=== PATIENT | male | born 1935 | race Caucasian/White ===

== ENCOUNTER 2019-12-27 18:53 | Inpatient (IN) ==
[2019-12-27 20:15] LABS: Basophils % 0.3 %; Eosinophils # 0.1 K/mcL (0.0-0.6); Eosinophils % 1.1 %; Hematocrit 38.1 % (37.5-50.1); Hemoglobin 12.5 g/dL (12.9-16.9); Immature Granulocytes % 0.8 % (0-4); Lymphocytes # 0.9 K/mcL (0.6-4.6); Lymphocytes % 6.8 %; Mean Corpuscular HGB Conc 32.8 g/dL (31.6-35.5); Mean Corpuscular Hemoglobin 29.7 pg (28.0-33.3); Mean Corpuscular Volume 90.5 fL (83.0-100.0); Mean Platelet Volume 9.5 fL (9.4-12.4); Monocytes # 0.8 K/mcL (0.0-1.3); Monocytes % 6.4 %; Neutrophils # 10.8 K/mcL (1.6-8.9); Platelet Count 233 K/mcL (140-400); Red Blood Count 4.21 M/mcL (4.19-5.50); Red Cell Distribution Width 14.1 % (11.5-14.5); Segmented Neutrophils % 84.6 %; White Blood Count 12.8 K/mcL (4.3-11.1)
[2019-12-27 20:35] LABS: Alanine Aminotransferase 14 Units/L (7-52); Albumin 3.5 g/dL (3.5-5.7); Albumin/Globulin Ratio 1.2 (1.1-2.2); Alkaline Phosphatase 69 Units/L (34-104); Aspartate Amino Transferase 21 Units/L (13-39); BUN/Creatinine Ratio 21 (6-26); Bilirubin,Total 0.4 mg/dL (0.3-1.0); Blood Urea Nitrogen 26 mg/dL (8-23); Carbon Dioxide 28 mEq/L (23-29); Chloride 103 mEq/L (98-107); Globulin 2.9 g/dL (2.4-3.5); Glucose 125 mg/dL (70-105); Magnesium 1.8 mg/dL (1.6-2.6); Osmolality,Calculated 296 (280-300); Potassium 3.7 mEq/L (3.5-5.1); Sodium 140 mEq/L (136-145); Total Protein 6.4 g/dL (6.4-8.9); Troponin I < 0.03 ng/mL (< 0.04); eGFR For African Americans > 60 (> 60); eGFR For Non-African Americans 55 (> 60)
[2019-12-27 20:40] LABS: INR 1.5; Prothrombin Time 17.5 Seconds (9.4-12.1)
[2019-12-27] MEDS ORDERED: 0.9 % Sodium Chloride 1,000 ML IV ONE (21:39)
[2019-12-27] MEDS ORDERED: *HR* LORazepam 0.5 MG TABLET PO PRN (23:30)
[2019-12-27] MEDS ORDERED: Naloxone 0.4 MG/ML INJ IVP PRN (23:30)
[2019-12-27] MEDS ORDERED: Acetaminophen 325 MG TABLET PO PRN (23:57)
[2019-12-28] MEDS: 0.9 % Sodium Chloride 1,000 ML IVC SCH ×2 (00:09→09:24)
[2019-12-28] MEDS ORDERED: cefTRIAXone 1,000 MG in Water for inj. (sterile) 10 ML IVP ONE (00:16)
[2019-12-28] MEDS ORDERED: cefTRIAXone 2,000 MG in Water for inj. (sterile) 20 ML IVP ONE (00:34)
[2019-12-28 02:28] LABS: Basophils % 0.2 %; Eosinophils # 0.1 K/mcL (0.0-0.6); Eosinophils % 0.8 %; Hematocrit 35.4 % (37.5-50.1); Hemoglobin 11.5 g/dL (12.9-16.9); Immature Granulocytes % 0.5 % (0-4); Lymphocytes % 10.2 %; Mean Corpuscular HGB Conc 32.5 g/dL (31.6-35.5); Mean Corpuscular Hemoglobin 29.4 pg (28.0-33.3); Mean Corpuscular Volume 90.5 fL (83.0-100.0); Mean Platelet Volume 9.6 fL (9.4-12.4); Monocytes # 0.7 K/mcL (0.0-1.3); Monocytes % 7.4 %; Neutrophils # 7.6 K/mcL (1.6-8.9); Platelet Count 207 K/mcL (140-400); Red Blood Count 3.91 M/mcL (4.19-5.50); Red Cell Distribution Width 14.1 % (11.5-14.5); Segmented Neutrophils % 80.9 %; White Blood Count 9.4 K/mcL (4.3-11.1)
[2019-12-28 02:58] LABS: BUN/Creatinine Ratio 21 (6-26); Blood Urea Nitrogen 26 mg/dL (8-23); Calcium 8.3 mg/dL (8.6-10.3); Carbon Dioxide 29 mEq/L (23-29); Chloride 105 mEq/L (98-107); Glucose 140 mg/dL (70-105); Osmolality,Calculated 299 (280-300); Potassium 3.8 mEq/L (3.5-5.1); Sodium 141 mEq/L (136-145); eGFR For African Americans > 60 (> 60); eGFR For Non-African Americans 57 (> 60)
[2019-12-28] MEDS: *HR* Rivaroxaban 10 MG TABLET PO SCH (08:39)
[2019-12-28] MEDS: Aspirin 81 MG TAB.CHEW PO SCH (08:41)
[2019-12-28] MEDS: Metoprolol XL (24 HR) Succ 50 MG TAB.ER.24H PO SCH (08:41)
[2019-12-28] MEDS: Multivit/Ca/Min/Fe/FA 1 TAB TABLET PO SCH (08:41)
[2019-12-28] MEDS: (Mirabegron [Myrbetriq] 50 MG) PO SCH (08:42)
[2019-12-28] MEDS ORDERED: *HR* HYDROcodone/Acet 5/325 mg TABLET PO PRN (08:53)
[2019-12-28] MEDS ORDERED: hydrOXYzine pamoate 25 MG CAPSULE PO SCH (09:00)
[2019-12-28] MEDS: Azithromycin 500 MG in 0.9 % Sodium Chloride 250 ML IVPB SCH (11:28)
[2019-12-28] MEDS ORDERED: *HR* OxyCODONE/APAP 5/325 TABLET PO PRN (11:36)
[2019-12-28] MEDS: *HR* OxyCODONE/APAP 5/325 TABLET PO PRN (19:55)
[2019-12-28] MEDS ORDERED: *HR* OxyCODONE/APAP 5/325 TABLET PO ONE (21:54)
[2019-12-28] MEDS ORDERED: Ketorolac 30 MG/ML VIAL IVP ONE (21:55)
[2019-12-28] MEDS: cefTRIAXone 1,000 MG in 0.9 % Sodium Chloride Mini Bag 100 ML IVPB SCH (22:09)
[2019-12-29] MEDS: *HR* OxyCODONE/APAP 5/325 TABLET PO PRN ×5 (02:44→21:36)
[2019-12-29] MEDS: Multivit/Ca/Min/Fe/FA 1 TAB TABLET PO SCH (07:52)
[2019-12-29] MEDS: Aspirin 81 MG TAB.CHEW PO SCH (07:52)
[2019-12-29] MEDS: Metoprolol XL (24 HR) Succ 50 MG TAB.ER.24H PO SCH (07:52)
[2019-12-29] MEDS: *HR* Rivaroxaban 10 MG TABLET PO SCH (07:52)
[2019-12-29] MEDS: (Mirabegron [Myrbetriq] 50 MG) PO SCH (07:53)
[2019-12-29] MEDS ORDERED: haloperidoL 1 MG TABLET PO PRN (09:53)
[2019-12-29] MEDS: Azithromycin 500 MG in 0.9 % Sodium Chloride 250 ML IVPB SCH (12:09)
[2019-12-30] MEDS: cefTRIAXone 1,000 MG in 0.9 % Sodium Chloride Mini Bag 100 ML IVPB SCH (00:20)
[2019-12-30] MEDS: *HR* OxyCODONE/APAP 5/325 TABLET PO PRN ×2 (01:28→06:35)
[2019-12-30] MEDS: Aspirin 81 MG TAB.CHEW PO SCH (08:05)
[2019-12-30] MEDS: Multivit/Ca/Min/Fe/FA 1 TAB TABLET PO SCH (08:06)
[2019-12-30] MEDS: (Mirabegron [Myrbetriq] 50 MG) PO SCH (08:06)
[2019-12-30] MEDS: Metoprolol XL (24 HR) Succ 50 MG TAB.ER.24H PO SCH (08:06)
[2019-12-30] MEDS: *HR* Rivaroxaban 15 MG TABLET PO SCH (08:06)
[2019-12-30 09:28] LABS: Basophils % 0.5 %; Eosinophils # 0.4 K/mcL (0.0-0.6); Eosinophils % 5.2 %; Hematocrit 35.9 % (37.5-50.1); Hemoglobin 11.8 g/dL (12.9-16.9); Immature Granulocytes % 0.2 % (0-4); Lymphocytes # 1.1 K/mcL (0.6-4.6); Mean Corpuscular HGB Conc 32.9 g/dL (31.6-35.5); Mean Corpuscular Volume 91.3 fL (83.0-100.0); Mean Platelet Volume 10.1 fL (9.4-12.4); Monocytes # 0.7 K/mcL (0.0-1.3); Monocytes % 8.3 %; Neutrophils # 6.1 K/mcL (1.6-8.9); Platelet Count 214 K/mcL (140-400); Red Blood Count 3.93 M/mcL (4.19-5.50); Red Cell Distribution Width 14.1 % (11.5-14.5); Segmented Neutrophils % 72.8 %; White Blood Count 8.4 K/mcL (4.3-11.1)
[2019-12-30 09:40] LABS: Alanine Aminotransferase 78 Units/L (7-52); Albumin/Globulin Ratio 1.2 (1.1-2.2); Alkaline Phosphatase 127 Units/L (34-104); Aspartate Amino Transferase 94 Units/L (13-39); BUN/Creatinine Ratio 22 (6-26); Bilirubin,Total 0.7 mg/dL (0.3-1.0); Blood Urea Nitrogen 24 mg/dL (8-23); Calcium 8.4 mg/dL (8.6-10.3); Carbon Dioxide 29 mEq/L (23-29); Chloride 104 mEq/L (98-107); Globulin 2.6 g/dL (2.4-3.5); Glucose 97 mg/dL (70-105); Osmolality,Calculated 294 (280-300); Potassium 3.8 mEq/L (3.5-5.1); Sodium 140 mEq/L (136-145); Total Protein 5.6 g/dL (6.4-8.9); eGFR For African Americans > 60 (> 60); eGFR For Non-African Americans > 60 (> 60)
[2019-12-30] MEDS: Azithromycin 500 MG in 0.9 % Sodium Chloride 250 ML IVPB SCH (11:37)
[2019-12-30] MEDS: *HR* OxyCODONE/APAP 7.5/325 TABLET PO PRN (17:04)
[2019-12-30] MEDS ORDERED: 0.9 % Sodium Chloride 500 ML IVC ONE (22:58)
[2019-12-31] MEDS: *HR* OxyCODONE/APAP 7.5/325 TABLET PO PRN ×2 (01:34→07:48)
[2019-12-31] MEDS: cefTRIAXone 1,000 MG in 0.9 % Sodium Chloride Mini Bag 100 ML IVPB SCH (01:35)
[2019-12-31 07:15] VITALS: BP 128/83
[2019-12-31] MEDS: (Mirabegron [Myrbetriq] 50 MG) PO SCH (07:48)
[2019-12-31] MEDS: Multivit/Ca/Min/Fe/FA 1 TAB TABLET PO SCH (07:48)
[2019-12-31] MEDS: *HR* Rivaroxaban 15 MG TABLET PO SCH (07:48)
[2019-12-31] MEDS: Metoprolol XL (24 HR) Succ 50 MG TAB.ER.24H PO SCH (07:48)
[2019-12-31] MEDS: Aspirin 81 MG TAB.CHEW PO SCH (07:48)
== END 2019-12-31 10:25 | disposition other institution (70) | DRG 194 ==
LOC: INPPIK 18:53 → EMEROOPIK 18:53 → INPPIK 23:20
PROVIDERS: ADMIT Family Medicine; ATTEND Family Medicine

== ENCOUNTER 2019-12-29 17:27 | Inpatient (IN) ==
[2019-12-31] MEDS ORDERED: Naloxone 0.4 MG/ML INJ IVP PRN (10:14)
[2019-12-31] MEDS ORDERED: haloperidoL 1 MG TABLET PO PRN (10:14)
[2019-12-31] MEDS ORDERED: Azithromycin 500 MG VIAL IVPB SCH (11:00)
[2019-12-31] MEDS ORDERED: Azithromycin 500 MG in 0.9 % Sodium Chloride 250 ML IVPB SCH (11:00)
[2019-12-31] MEDS ORDERED: CefTRIAXone 1,000 MG VIAL IVPB SCH (11:00)
[2019-12-31] MEDS ORDERED: *HR* OxyCODONE/APAP 10/325 TABLET PO PRN (12:50)
[2019-12-31] MEDS: Morphine Sulfate Immed Rel 30 MG TABLET PO PRN (17:15)
[2019-12-31] MEDS: Acetaminophen 325 MG TABLET PO SCH (20:22)
[2019-12-31] MEDS: hydrOXYzine pamoate 25 MG CAPSULE PO SCH (20:22)
[2020-01-01] MEDS ORDERED: cefTRIAXone 1,000 MG in 0.9 % Sodium Chloride Mini Bag 100 ML IVPB SCH
[2020-01-01] MEDS: Morphine Sulfate Immed Rel 30 MG TABLET PO PRN ×2 (00:35→09:00)
[2020-01-01] MEDS: hydrOXYzine pamoate 25 MG CAPSULE PO SCH ×2 (08:56→21:13)
[2020-01-01] MEDS: Multivit/Ca/Min/Fe/FA 1 TAB TABLET PO SCH (08:56)
[2020-01-01] MEDS: Metoprolol XL (24 HR) Succ 50 MG TAB.ER.24H PO SCH (08:56)
[2020-01-01] MEDS: *HR* Rivaroxaban 15 MG TABLET PO SCH (08:56)
[2020-01-01] MEDS: Aspirin 81 MG TAB.CHEW PO SCH (08:57)
[2020-01-01] MEDS: Acetaminophen 325 MG TABLET PO SCH ×2 (08:57→21:13)
[2020-01-01] MEDS ORDERED: NON-FORMULARY MEDICATION 1 EACH EACH (Multivitamin [Daily Multiple Vitamin] 1 TAB) PO SCH (09:00)
[2020-01-01] MEDS ORDERED: Ondansetron ODT 4 MG TAB.RAPDIS SL PRN (12:06)
[2020-01-01] MEDS: cephALEXin 500 MG CAPSULE PO SCH ×2 (13:51→21:13)
[2020-01-02] MEDS: *HR* OxyCODONE/APAP 7.5/325 TABLET PO PRN (06:33)
[2020-01-02 07:14] LABS: Hematocrit 35.9 % (37.5-50.1); Hemoglobin 11.4 g/dL (12.9-16.9); Mean Corpuscular HGB Conc 31.8 g/dL (31.6-35.5); Mean Corpuscular Hemoglobin 29.3 pg (28.0-33.3); Mean Corpuscular Volume 92.3 fL (83.0-100.0); Mean Platelet Volume 10.2 fL (9.4-12.4); Platelet Count 231 K/mcL (140-400); Red Blood Count 3.89 M/mcL (4.19-5.50); Red Cell Distribution Width 14.8 % (11.5-14.5); White Blood Count 7.1 K/mcL (4.3-11.1)
[2020-01-02 07:40] LABS: BUN/Creatinine Ratio 26 (6-26); Blood Urea Nitrogen 25 mg/dL (8-23); Calcium 8.6 mg/dL (8.6-10.3); Carbon Dioxide 30 mEq/L (23-29); Chloride 105 mEq/L (98-107); Glucose 90 mg/dL (70-105); Osmolality,Calculated 298 (280-300); Potassium 4.1 mEq/L (3.5-5.1); Sodium 142 mEq/L (136-145); eGFR For African Americans > 60 (> 60); eGFR For Non-African Americans > 60 (> 60)
[2020-01-02] MEDS: Acetaminophen 325 MG TABLET PO SCH ×2 (08:49→19:59)
[2020-01-02] MEDS: Multivit/Ca/Min/Fe/FA 1 TAB TABLET PO SCH (08:50)
[2020-01-02] MEDS: Aspirin 81 MG TAB.CHEW PO SCH (08:50)
[2020-01-02] MEDS: Metoprolol XL (24 HR) Succ 50 MG TAB.ER.24H PO SCH (08:50)
[2020-01-02] MEDS: cephALEXin 500 MG CAPSULE PO SCH ×3 (08:50→19:59)
[2020-01-02] MEDS: hydrOXYzine pamoate 25 MG CAPSULE PO SCH ×2 (08:50→20:00)
[2020-01-02] MEDS: *HR* Rivaroxaban 15 MG TABLET PO SCH (08:50)
[2020-01-02] MEDS ORDERED: Metoprolol XL (24 HR) Succ 25 MG TAB.ER.24H PO ONE (11:45)
[2020-01-03] MEDS ORDERED: Metoprolol XL (24 HR) Succ 25 MG TAB.ER.24H PO SCH (09:00)
[2020-01-03] MEDS: Acetaminophen 325 MG TABLET PO SCH ×2 (09:10→20:42)
[2020-01-03] MEDS: cephALEXin 500 MG CAPSULE PO SCH ×2 (09:10→14:50)
[2020-01-03] MEDS: Metoprolol XL (24 HR) Succ 50 MG TAB.ER.24H PO SCH (09:11)
[2020-01-03] MEDS: Aspirin 81 MG TAB.CHEW PO SCH (09:11)
[2020-01-03] MEDS: hydrOXYzine pamoate 25 MG CAPSULE PO SCH ×2 (09:11→20:41)
[2020-01-03] MEDS: Multivit/Ca/Min/Fe/FA 1 TAB TABLET PO SCH (09:12)
[2020-01-03] MEDS: *HR* Rivaroxaban 15 MG TABLET PO SCH (09:12)
[2020-01-04] MEDS: Metoprolol XL (24 HR) Succ 50 MG TAB.ER.24H PO SCH (08:46)
[2020-01-04] MEDS: *HR* Rivaroxaban 15 MG TABLET PO SCH (08:47)
[2020-01-04] MEDS: Multivit/Ca/Min/Fe/FA 1 TAB TABLET PO SCH (08:47)
[2020-01-04] MEDS: hydrOXYzine pamoate 25 MG CAPSULE PO SCH ×2 (08:49→19:54)
[2020-01-04] MEDS: Acetaminophen 325 MG TABLET PO SCH ×2 (08:49→19:54)
[2020-01-04] MEDS: *HR* OxyCODONE/APAP 7.5/325 TABLET PO PRN (08:50)
[2020-01-04] MEDS: Aspirin 81 MG TAB.CHEW PO SCH (08:51)
[2020-01-04] MEDS ORDERED: Albuterol 2.5 MG/3 ML NEBULIZER IH PRN (15:10)
[2020-01-05] MEDS: hydrOXYzine pamoate 25 MG CAPSULE PO SCH ×2 (09:42→22:09)
[2020-01-05] MEDS: Multivit/Ca/Min/Fe/FA 1 TAB TABLET PO SCH (09:42)
[2020-01-05] MEDS: *HR* Rivaroxaban 15 MG TABLET PO SCH (09:42)
[2020-01-05] MEDS: Acetaminophen 325 MG TABLET PO SCH ×2 (09:42→22:09)
[2020-01-05] MEDS: Metoprolol XL (24 HR) Succ 50 MG TAB.ER.24H PO SCH (09:42)
[2020-01-05] MEDS: Aspirin 81 MG TAB.CHEW PO SCH (09:42)
[2020-01-05] MEDS: DilTIAZem CD (24hr) 180 MG CAP.ER.24H PO SCH (09:47)
[2020-01-06] MEDS: DilTIAZem CD (24hr) 180 MG CAP.ER.24H PO SCH (09:09)
[2020-01-06] MEDS: hydrOXYzine pamoate 25 MG CAPSULE PO SCH ×2 (09:09→21:06)
[2020-01-06] MEDS: Acetaminophen 325 MG TABLET PO SCH ×2 (09:09→21:06)
[2020-01-06] MEDS: Metoprolol XL (24 HR) Succ 50 MG TAB.ER.24H PO SCH (09:09)
[2020-01-06] MEDS: *HR* Rivaroxaban 15 MG TABLET PO SCH (09:09)
[2020-01-06] MEDS: Multivit/Ca/Min/Fe/FA 1 TAB TABLET PO SCH (09:09)
[2020-01-06] MEDS: Aspirin 81 MG TAB.CHEW PO SCH (09:09)
[2020-01-07] MEDS: Multivit/Ca/Min/Fe/FA 1 TAB TABLET PO SCH (09:23)
[2020-01-07] MEDS: Acetaminophen 325 MG TABLET PO SCH ×2 (09:23→19:31)
[2020-01-07] MEDS: Metoprolol XL (24 HR) Succ 50 MG TAB.ER.24H PO SCH (09:24)
[2020-01-07] MEDS: *HR* Rivaroxaban 15 MG TABLET PO SCH (09:24)
[2020-01-07] MEDS: hydrOXYzine pamoate 25 MG CAPSULE PO SCH ×2 (09:24→19:31)
[2020-01-07] MEDS: DilTIAZem CD (24hr) 180 MG CAP.ER.24H PO SCH (09:24)
[2020-01-07] MEDS: Aspirin 81 MG TAB.CHEW PO SCH (09:24)
[2020-01-08 08:02] LABS: Basophils % 0.5 %; Eosinophils # 0.6 K/mcL (0.0-0.6); Eosinophils % 7.5 %; Hematocrit 36.4 % (37.5-50.1); Hemoglobin 11.6 g/dL (12.9-16.9); Immature Granulocytes % 0.4 % (0-4); Lymphocytes # 1.3 K/mcL (0.6-4.6); Mean Corpuscular HGB Conc 31.9 g/dL (31.6-35.5); Mean Corpuscular Hemoglobin 29.4 pg (28.0-33.3); Mean Corpuscular Volume 92.4 fL (83.0-100.0); Monocytes # 0.7 K/mcL (0.0-1.3); Monocytes % 8.7 %; Neutrophils # 5.1 K/mcL (1.6-8.9); Platelet Count 303 K/mcL (140-400); Red Blood Count 3.94 M/mcL (4.19-5.50); Red Cell Distribution Width 14.7 % (11.5-14.5); Segmented Neutrophils % 65.9 %; White Blood Count 7.7 K/mcL (4.3-11.1)
[2020-01-08 08:11] LABS: BUN/Creatinine Ratio 25 (6-26); Blood Urea Nitrogen 22 mg/dL (8-23); Calcium 8.7 mg/dL (8.6-10.3); Carbon Dioxide 32 mEq/L (23-29); Chloride 105 mEq/L (98-107); Glucose 85 mg/dL (70-105); Osmolality,Calculated 297 (280-300); Potassium 4.2 mEq/L (3.5-5.1); Sodium 142 mEq/L (136-145); eGFR For African Americans > 60 (> 60); eGFR For Non-African Americans > 60 (> 60)
[2020-01-08] MEDS: *HR* Rivaroxaban 15 MG TABLET PO SCH (10:14)
[2020-01-08] MEDS: Aspirin 81 MG TAB.CHEW PO SCH (10:14)
[2020-01-08] MEDS: Multivit/Ca/Min/Fe/FA 1 TAB TABLET PO SCH (10:14)
[2020-01-08] MEDS: DilTIAZem CD (24hr) 180 MG CAP.ER.24H PO SCH (10:14)
[2020-01-08] MEDS: Acetaminophen 325 MG TABLET PO SCH ×2 (10:15→20:33)
[2020-01-08] MEDS: hydrOXYzine pamoate 25 MG CAPSULE PO SCH ×2 (10:15→20:32)
[2020-01-08] MEDS: Metoprolol XL (24 HR) Succ 50 MG TAB.ER.24H PO SCH (10:15)
[2020-01-08] MEDS: QUEtiapine Fumarate 25 MG TABLET PO SCH (20:32)
[2020-01-09] MEDS: *HR* Rivaroxaban 10 MG TABLET PO SCH (08:17)
[2020-01-09] MEDS: Aspirin 81 MG TAB.CHEW PO SCH (08:17)
[2020-01-09] MEDS: hydrOXYzine pamoate 25 MG CAPSULE PO SCH ×2 (08:17→21:13)
[2020-01-09] MEDS: DilTIAZem CD (24hr) 180 MG CAP.ER.24H PO SCH (08:17)
[2020-01-09] MEDS: Acetaminophen 325 MG TABLET PO SCH ×2 (08:18→21:13)
[2020-01-09] MEDS: Metoprolol XL (24 HR) Succ 50 MG TAB.ER.24H PO SCH (08:18)
[2020-01-09] MEDS: Multivit/Ca/Min/Fe/FA 1 TAB TABLET PO SCH (08:18)
[2020-01-09] MEDS: QUEtiapine Fumarate 25 MG TABLET PO SCH (21:13)
[2020-01-10] MEDS: *HR* Rivaroxaban 10 MG TABLET PO SCH (08:17)
[2020-01-10] MEDS: Metoprolol XL (24 HR) Succ 50 MG TAB.ER.24H PO SCH (08:18)
[2020-01-10] MEDS: DilTIAZem CD (24hr) 180 MG CAP.ER.24H PO SCH (08:18)
[2020-01-10] MEDS: hydrOXYzine pamoate 25 MG CAPSULE PO SCH ×2 (08:18→20:35)
[2020-01-10] MEDS: Multivit/Ca/Min/Fe/FA 1 TAB TABLET PO SCH (08:18)
[2020-01-10] MEDS: Acetaminophen 325 MG TABLET PO SCH ×2 (08:18→20:35)
[2020-01-10] MEDS: Aspirin 81 MG TAB.CHEW PO SCH (08:18)
[2020-01-10] MEDS: QUEtiapine Fumarate 25 MG TABLET PO SCH (20:35)
[2020-01-11] MEDS: DilTIAZem CD (24hr) 180 MG CAP.ER.24H PO SCH (07:43)
[2020-01-11] MEDS: Multivit/Ca/Min/Fe/FA 1 TAB TABLET PO SCH (07:43)
[2020-01-11] MEDS: hydrOXYzine pamoate 25 MG CAPSULE PO SCH (07:43)
[2020-01-11] MEDS: Aspirin 81 MG TAB.CHEW PO SCH (07:43)
[2020-01-11] MEDS: Metoprolol XL (24 HR) Succ 50 MG TAB.ER.24H PO SCH (07:43)
[2020-01-11 07:44] VITALS: BP 121/73
[2020-01-11] MEDS: *HR* Rivaroxaban 10 MG TABLET PO SCH (07:44)
[2020-01-11] MEDS: Acetaminophen 325 MG TABLET PO SCH (07:44)
[2020-01-11] MEDS ORDERED: QUEtiapine Fumarate 25 MG TABLET PO ONE (15:27)
== END 2020-01-11 15:50 | disposition home health service (06) | DRG 194 ==
LOC: INPPIK 12-31 10:30
PROVIDERS: ADMIT Family Medicine; ATTEND Family Medicine